=== PATIENT | male | born 1960 | race American Indian/Alaskan Native ===

== ENCOUNTER 2016-12-10 13:58 | Inpatient (IN) | payer MEDICAID ==
--- NOTE | 2016-12-10 15:46 | C.PDOC ---
History Of Present Illness <WandaChaitanya L - Last Filed: 12/10/16 19:23> <Rodney Root - Last Filed: 12/11/16 13:29> 56 yr old male presents to the ER for heroin detox. Patient is a pre-screened. Patient reports he snorts heroin and has been doing it for the last 20 years, last use was this morning. Patient states 3 weeks ago he had an accidentally overdosed and ended up in [facility], states it was a wake up call and now wants detox. Patient reports he also drinks alcohol, 2 beer cans a day. Patient denies fever, chest pain, SOB, nausea, vomiting, suicidal ideation, homicidal ideation, weakness or numbness. (Rodney Root) <WandaChaitanya L - Last Filed: 12/10/16 19:23> History Per: Patient History/Exam Limitations: no limitations Onset/Duration Of Symptoms: Persistent Current Symptoms Are (Timing): Still Present <Rodney Root - Last Filed: 12/11/16 13:29> Time Seen by Provider: 12/10/16 15:42 Chief Complaint (Nursing): Substance Abuse Past Medical History Reviewed: Historical Data, Nursing Documentation, Vital Signs Family History: States: No Known Family Hx - Social History Hx Alcohol Use: Yes Hx Substance Use: Yes - Immunization History Hx Tetanus Toxoid Vaccination: No Hx Influenza Vaccination: No Hx Pneumococcal Vaccination: No <Rodney Root - Last Filed: 12/11/16 13:29> Vital Signs: Last Vital Signs Temp 98.2 F 12/11/16 09:00 Pulse 75 12/11/16 09:00 Resp 18 12/11/16 09:00 BP 120/82 12/11/16 09:00 Pulse Ox 100 12/11/16 09:00 Review Of Systems Except As Marked, All Systems Reviewed And Found Negative. Constitutional: Negative for: Fever Cardiovascular: Negative for: Chest Pain Respiratory: Negative for: Shortness of Breath Gastrointestinal: Negative for: Nausea, Vomiting Neurological: Negative for: Weakness, Numbness Psych: Negative for: Suicidal ideation <Rodney Root - Last Filed: 12/11/16 13:29> Physical Exam - Physical Exam Appears: Non-toxic Skin: Warm, Dry Head: Atraumatic, Normacephalic Chest: Symmetrical, No Tenderness Cardiovascular: Rhythm Regular, No Murmur Respiratory: Normal Breath Sounds, No Rales, No Rhonchi, No Stridor, No Wheezing Gastrointestinal/Abdominal: Normal Exam, Soft, No Tenderness, No Guarding, No Rebound Extremity: Normal ROM, No Swelling Neurological/Psych: Oriented x3, Normal Speech, Normal Motor <Rodney Root - Last Filed: 12/11/16 13:29> ED Course And Treatment - Laboratory Results Result Diagrams: 12/10/16 16:38 12/10/16 16:38 <Chaitanya Muñoz - Last Filed: 12/10/16 19:23> - Laboratory Results Result Diagrams: 12/10/16 16:38 12/10/16 16:38 ECG: Interpreted By Me, Viewed By Me ECG Rhythm: Sinus Rhythm ECG Interpretation: Normal Interpretation Of ECG: LVH. No acute ischemia. Rate From EC (BPM) O2 Sat by Pulse Oximetry: 98 (RA) <Rodney Root - Last Filed: 12/11/16 13:29> Disposition - Disposition Disposition Time: 19:22 <Chaitanya Muñoz - Last Filed: 12/10/16 19:23> <Rodney Root - Last Filed: 12/11/16 13:29> - Disposition Disposition: HOSPITALIZED Condition: GOOD - Clinical Impression Clinical Impression: Drug dependence <Chaitanya Muñoz - Last Filed: 12/10/16 19:23> - Scribe Statement The provider has reviewed the documentation as recorded by the Scribe <Rodney Root - Last Filed: 12/11/16 13:29> - Scribe Statement Silvia Lemus (Rodney Root) Provider Attestation: All medical record entries made by the Scribe were at my direction and personally dictated by me. I have reviewed the chart and agree that the record accurately reflects my personal performance of the history, physical exam, medical decision making, and the department course for this patient. I have also personally directed, reviewed, and agree with the discharge instructions and disposition. (Rodney Root) Decision To Admit - Pt Status Changed To: Hospital Disposition Of: Inpatient - Admit Certification Admit to Inpatient:: After my assessment, the patient will require hospitalization for at least two midnights. This is because of the severity of symptoms shown, intensity of services needed, and/or the medical risk in this patient being treated as an outpatient. - InPatient: Physician Admission Certification: I certify that this patient requires 2 or more midnights of care for the following reason:: Protocol - . Bed Request Type: Detox Admitting Physician: Theodore Gao <Chaitanya Muñoz - Last Filed: 12/10/16 19:23> <Rodney Root - Last Filed: 12/11/16 13:29> - . Patient Diagnosis: Drug dependence Physician Patient Turnover Patient Signed Over To: Chaitanya Muñoz Handoff Comments: pending acceptance to detox <Rodney Root - Last Filed: 12/11/16 13:29>
[2016-12-10 16:42] LABS: BASO # 0.1 K/uL (0.0-0.2); BASO % 1.4 % (0.0-2.0); EOS # 0.2 K/uL (0.0-0.7); EOS % 2.3 % (0.0-4.0); HEMATOCRIT 40.1 % (35.0-51.0); LYMPH # 2.4 K/uL (1.0-4.3); LYMPH % 30.7 % (20.0-40.0); MEAN CELL VOLUME 86.5 fL (80.0-94.0); MEAN CORPUSCULAR HEMOGLOBIN 29.1 pg (27.0-31.0); MEAN CORPUSCULAR HGB CONC 33.7 g/dL (33.0-37.0); MEAN PLATELET VOLUME 7.9 fL (7.2-11.7); MONO # 0.5 K/uL (0.0-0.8); MONO % 6.3 % (0.0-10.0); RED CELL DISTRIBUTION WIDTH 14.4 % (11.5-14.5); WHITE BLOOD COUNT 7.8 K/uL (4.8-10.8)
[2016-12-10 16:44] LABS: RBC URINE 1 /hpf (0-3); URINE BILIRUBIN NEGATIVE (NEGATIVE); URINE BLOOD NEGATIVE (NEGATIVE); URINE COLOR Yellow (YELLOW); URINE GLUCOSE (UA) NORMAL (Normal); URINE KETONE NEGATIVE (NEGATIVE); URINE LEUKOCYTE ESTERASE NEG Leu/uL (Negative); URINE PROTEIN NEGATIVE (NEGATIVE); URINE UROBILINOGEN NORMAL mg/dL (0.2-1.0)
[2016-12-10 16:52] LABS: CHLORIDE 94 mmol/L (98-107); SODIUM 132 mmol/L (132-148)
[2016-12-10 16:54] LABS: ALB/GLOB RATIO 1.3 (1.0-2.1); AST/SGOT 36 U/L (17-59); BILIRUBIN,TOTAL 0.8 mg/dL (0.2-1.3); BLOOD UREA NITROGEN 16 mg/dL (9-20); CARBON DIOXIDE 28 mmol/L (22-30); GFR AFRICAN-AMERICAN > 60; TOTAL PROTEIN 8.2 g/dL (6.3-8.3)
[2016-12-10 16:55] LABS: ALKALINE PHOSPHATASE 60 U/L (38-126); ALT/SGPT 25 U/L (21-72); CALCIUM 9.3 mg/dl (8.6-10.4); GLUCOSE,RANDOM 97 mg/dL (75-110)
[2016-12-10 17:13] LABS: ALCOHOL SERUM < 10 mg/dl (0-10)
[2016-12-11] MEDS ORDERED: Buprenorphine Hydrochloride 2 mg SL ONE ×2 (09:41→11:00)
--- NOTE | 2016-12-11 12:37 | PCM.PSYCH ---
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 Patient with no previous psychiatric history came for opiate use treatment. Reported started using heroine at the age of 19 years, increased gradually up to 2 bundles daily, was snorting. Last use reported yesterday. Reported history of one previous detox 10 years ago at [facility] and one rehabilitation in the past. Patient denied use of any other drugs including cocaine, cannabis and alcohol. ER record shows that patient has history of alcohol use and was drinking 2 beers daily. He smokes one pack of cigarettes daily. Patient has history of hypertension but not taking any medication for last 1 year. Denied any family history, legal history or any abuse. He was born in [place], has 11th grade of education. 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 His children or from 2 females. Reported currently he is homeless for last 2 months. His height is 5 feet 11 inches and weight is 186 pounds. Current Medications: Active Medications Generic Name Dose Route Start Last Admin Trade Name Freq PRN Reason Stop Dose Admin Clonidine HCl 0.1 mg 12/10/16 22:37 12/11/16 06:45 Catapres PO 0.1 mg Q6H PRN Administration Withdrawal symptoms Trazodone HCl 50 mg 12/10/16 21:50 Desyrel PO HS PRN Insomnia Past Psychiatric History - Past Psychiatric History Previous Treatment History: None History of Abuse: None reported History of ETOH/Drug Use: See HPI History of Family Illness: None reported Pertinent Medical Hx (Current Medical&Sleep Prob, Allergies): Allergies Allergy/AdvReac Type Severity Reaction Status Date / Time No Known Allergies Allergy Verified 12/10/16 16:07 No Known Home Med 12/10/16 Review of Systems - Psychiatric Psychiatric: Other Mental Status Examination - Personal Presentation Personal Presentation: Looks stated age - Affect Affect: Other (Angry) - Motor Activity Motor Activity: Psychomotor Retardation - Reliability in Providing Information Reliability in Providing Information: Fair - Speech Speech: Organized - Mood Mood: Other (Irritable) - Formal Thought Process Formal Thought Process: No Impairment - Hallucinations/Delusions Hallucinations: Other (None reported) Delusions: Other - Obsessions/Compulsions Obsessions: None Compulsions: None - Cognitive Functions Orientation: Person, Place, Situation, Time Sensorium: Alert Attention/Concentration: Attentive Abstract Thinking: [place] Estimate of Intelligence: Average Judgement: Intact, as evidence by: Insight regarding need for hospitalization Memory: Recent intact, as evidence by: 3/3 object recall, Remote intact, as evidenced by: Ability to recall historical events - Risk Risk: Withdrawal, Diminished functioning - Strength & Assets Inventory Strength & Assets Inventory: Cooperative - Limitations Limitations: Other DSM 5 DX - DSM 5 DSM 5 Diagnosis: Opiate use disorder severe Opiate withdrawal Alcohol use disorder - Recommended/Plan of Treatment Treatment Recommendations and Plan of Treatment: We will start Subutex once patient had symptoms Other when necessary medications Gabapentin 100 mg 3 times a day Nicotine patch Ativan when necessary for alcohol withdrawal symptoms Atarax for symptoms of anxiety Projected ELOS: 5-6 days Discharge Plan and Discharge Criteria: Patient doesn't want to go to any rehabilitation or IOP after discharge from the hospital - Smoking Cessation Smoking Cessation Initiated: Yes
[2016-12-11] MEDS ORDERED: Aluminum Hydroxide/Magnesium Hydroxide Susp (30 mL) PO PRN (12:39)
[2016-12-12] MEDS ORDERED: Buprenorphine Hydrochloride 2 mg SL ONE (10:00)
--- NOTE | 2016-12-12 15:58 | PCM.PYCHPN ---
Psychiatric Progress Note - Psychiatric Progress Note Patient seen today, length of contact: 15 minutes Patient Chief Complaint: I'm feeling much better with the treatment. Can I get Vivitral injection Problems Identified/Issues Discussed: Patient seen. Chart reviewed. Case discussed with the staff. Issues related to illness and treatment were discussed with the patient. Reported compliant with treatment with no adverse affects. Tolerating treatment very well. Reported feeling better with very few withdrawal symptoms. At the time of evaluation, patient was awake alert oriented 3, had no delusions, no auditory or visual hallucinations, no suicidal ideations or homicidal ideations. Medical Problems: Hypertension Diagnostic Results: Reviewed DSM 5 Symptoms Update: Improving with treatment Medication Change: No Medical Record Reviewed: Yes Mental Status Examination - Cognitive Function Orientation: Person, Place, Situation, Time Memory: Intact Attention: WNL Concentration: WNL Association: [facility] Fund of Knowledge: [facility] Decription of patient's judgement and insights: Fair - Mood Mood: Neutral - Affect Affect: Other (Appropriate) - Speech Speech: Appropriate - Formal Thought Process Formal Thought Process: No Impairment Psychotic Thoughts and Behaviors: None reported - Suicidal Ideation Suicidal Ideation: No - Homicidal Ideation Homicidal Ideation: No Goal/Treatment Plan - Goal/Treatment Plan Need for Continued Stay: Remain at risks for inpatient hospitalization, Discharge may exacerbated symptoms, Severe functional impairment Progress Toward Problem(s) and Goals/Treatment Plan: Improving with treatment Patient education Supportive therapy Continue treatment as before Estimated Date of D/C: 12/14/16 - Smoking Cessation Smoking Cessation Initiated: Yes
--- NOTE | 2016-12-12 23:44 | CARD ---
APPROVED REPORT EKG Measurement Heart [id number] <Conclusion> Normal sinus rhythm Voltage criteria for left ventricular hypertrophy Abnormal ECG
[2016-12-13] MEDS ORDERED: Buprenorphine Hydrochloride 2 mg SL ONE (10:00)
--- NOTE | 2016-12-13 11:53 | PCM.PYCHPN ---
Psychiatric Progress Note - Psychiatric Progress Note Patient seen today, length of contact: 15 minutes Patient Chief Complaint: I'm feeling much better with the treatment. Can I get Vivitral injection Problems Identified/Issues Discussed: Patient seen. Chart reviewed. Case discussed with the staff. Issues related to illness and treatment were discussed with the patient. Reported compliant with treatment with no adverse affects. Tolerating treatment very well. Reported feeling better with very few withdrawal symptoms. Again patient requested for Vivitral injection. Again education provided about the injection. At the time of evaluation, patient was awake alert oriented 3, had no delusions, no auditory or visual hallucinations, no suicidal ideations or homicidal ideations. Medical Problems: Hypertension Diagnostic Results: Reviewed DSM 5 Symptoms Update: Improving with treatment Medication Change: No Medical Record Reviewed: Yes Mental Status Examination - Cognitive Function Orientation: Person, Place, Situation, Time Memory: Intact Attention: WNL Concentration: WNL Association: [facility] Fund of Knowledge: [facility] Decription of patient's judgement and insights: Fair - Mood Mood: Neutral - Affect Affect: Other (Appropriate) - Speech Speech: Appropriate - Formal Thought Process Formal Thought Process: No Impairment Psychotic Thoughts and Behaviors: None - Suicidal Ideation Suicidal Ideation: No - Homicidal Ideation Homicidal Ideation: No Goal/Treatment Plan - Goal/Treatment Plan Need for Continued Stay: Remain at risks for inpatient hospitalization, Discharge may exacerbated symptoms, Severe functional impairment Progress Toward Problem(s) and Goals/Treatment Plan: Improving with treatment Patient education Supportive therapy Continue treatment as before Patient will go to [facility] for follow-up care and VICINAL injection. Estimated Date of D/C: 12/14/16 - Smoking Cessation Smoking Cessation Initiated: Yes
[2016-12-13 14:33] VITALS: RESP 18
[2016-12-14 05:40] VITALS: TEMP 98
[2016-12-14 08:17] VITALS: BP 110/65; PULSE 75; O2SAT 99
[2016-12-14] MEDS ORDERED: Buprenorphine Hydrochloride 2 mg SL ONE (09:00)
--- NOTE | 2016-12-14 11:09 | PCM.PYCHDC ---
Mental Status Examination - Mental Status Examination Orientation: Person, Place, Situation, Time Memory: Intact Mood: Neutral Affect: Other (Appropriate) Speech: Appropriate Attention: WNL Concentration: WNL Association: WNL Fund of Knowledge: WNL Formal Thought Process: No Impairment Description of patient's judgement and insight: Fair Psychotic Thoughts and Behaviors: None Suicidal Ideation: No Current Homicidal Ideation?: No Discharge Summary - Discharge Note Reason for Hospitalization: Opiate use disorder Psychiatric History (includes Medical, Family, Personal Hx): Opiate use disorder , hypertension Laboratory Data: Reviewed Consultations:: List each consultation separately and include: 1. Reason for request. 2. Findings. 3. Follow-up Summary of Hospital Course include:: 1. Description of specific treatment plan utilized for patients during their course of treatmen. 2. Summarize the time- course for resolution of acute symptoms and/or regressed behaviors. 3. Describe issues identified and worked on during hospitalization. 4. Describe medication utilized. 5. Describe medical problems identified and treated. 6. 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 Patient with no previous psychiatric history came for opiate use treatment. Reported started using heroine at the age of 19 years, increased gradually up to 2 bundles daily, was snorting. Last use reported yesterday. Reported history of one previous detox 10 years ago at [facility] and one rehabilitation in the past. Patient denied use of any other drugs including cocaine, cannabis and alcohol. ER record shows that patient has history of alcohol use and was drinking 2 beers daily. He smokes one pack of cigarettes daily. Patient has history of hypertension but not taking any medication for last 1 year. Denied any family history, legal history or any abuse. He was born in [place], has 11th grade of education. 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 His children or from 2 females. Reported currently he is homeless for last 2 months. His height is 5 feet 11 inches and weight is 186 pounds. During his stay in the hospital patient was treated for opiate withdrawal symptoms with Subutex and other when necessary medications. Patient had history of hypertension but was not taking any medications for hypertension and refuses to take any medications in the hospital. With the above treatment patient started feeling better. No withdrawal symptoms. No adverse affects. Tolerating treatment very well. Today patient was stable and ready for discharge. At the time of evaluation and discharge, patient was awake alert oriented 3, had no delusions, no auditory or visual hallucinations, no suicidal ideations or homicidal ideations. Patient was discharged in stable condition. - Final Diagnosis (DSM 5) Condition upon Discharge: GOOD Disposition: HOME/ ROUTINE Follow-up Treatment Plan: Patient will go to [facility] for follow-up care and VICINAL injection. - Smoking Cessation Smoking Cessation Medication prescribed: Yes - Antipsychotic Medications Pt discharged on 2 or more routine antipsychotic medications: No
== END 2016-12-14 08:15 | disposition home or self-care (01) | DRG 745 ==
LOC: C.ER 13:58 → C.7D 19:20
PROC: HZ59ZZZ Individual Psychotherapy for Substance Abuse Treatment, Supportive (ICD-10-PCS; principal; 2016-12-10)
PROC: HZ2ZZZZ Detoxification Services for Substance Abuse Treatment (ICD-10-PCS; 2016-12-10)
PROC: HZ56ZZZ Individual Psychotherapy for Substance Abuse Treatment, Psychoeducation (ICD-10-PCS; 2016-12-10)
PROC: HZ83ZZZ Medication Management for Substance Abuse Treatment, Antabuse (ICD-10-PCS; 2016-12-10)
DX: F11.23 Opioid dependence with withdrawal (principal); I10 Essential (primary) hypertension; F10.10 Alcohol abuse, uncomplicated; Z59.0 Homelessness